=== PATIENT | female | born 1965 | race Caucasian/White ===

== ENCOUNTER 2021-07-07 16:16 | Outpatient (CLI) | payer BC ==
[2021-07-07 16:56] VITALS: BP 121/74
--- NOTE | 2021-07-07 16:56 | SLEEP CARE CONSULTATION ---
Information from patient questionnaire entered by Barbara Larry. I have reviewed and concur with the information entered by Barbara Larry. This document represents the service I personally performed and the decisions made by me, Ruby Benton ARNP. History of Present Illness Service Date and Time: 07/07/2021 1616 Reason for Visit: New patient Chief Complaint: reports: Unrefreshed sleep, Snoring, Observed pauses in breathing, Fatigue Date of Onset: 5-6 years Usual bedtime: 10 PM Time it takes to fall asleep: ~ 10 min Snores at night: Yes Observed to quit breathing while asleep: Yes Number of times waking at night: 3-5 Reasons for waking at night: reports: Snoring, Gasping for air, Bathroom, Other (Unknown reason) Toss, Turn, or Twitch while sleeping: Yes Recalls having dreams: No (Not lately) Usually gets out of bed at: 5-6 AM Feels refreshed in the morning: No Morning headache: No Sleepy or fatigued during the day: Yes Ever fallen asleep while driving: No Takes day naps: No Prior sleep studies: No Additional HPI information: I had the pleasure of seeing KAYLENE CAMPBELL today regarding the possibility of her having a sleep disorder. Her current complaints are fatigue, observed pauses in breathing, snoring and unrefreshed sleep. She states that in February she had a hysterectomy and was told by the nurses that she stopped breathing during surgery. Her sister, who works in sleep medicine, has also told her that she stops breathing during sleep. She has had times she has woken up snoring and other times with her heart pounding/palpitations. She has woken up gasping for air, too. She has stopped sleeping on her back to reduce incidences. She wakes up feeling ok but not energetic. She has brain fog and sometimes has trouble finding words. Her sister has sleep apnea and is using a PAP machine. - Parasomnia Symptoms Ever been unable to move upon waking from sleep: No Walks in sleep: No Talks in sleep: No Ever acted out dreams in sleep: No Ever felt weak in the knees when startled or emotional: No Bothered by creepy, crawly, restless sensations in legs: Yes (Sometimes/rare) Problems with memory or concentration: Yes (Memory is bad! 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 Patient is Single and lives in [place]. Have you smoked in the past 12 months: No Alcohol use: Yes Alcohol amount and frequency: 1-2 drinks every few weeks Caffeine use: Yes Caffeine amount and frequency: 1x/day (coffee/expresso) Family History Family history of sleep disordered breathing: Yes Family Hx Sleep Apnea: Father: Snoring, Sibling: Sleep apnea - Treated Allergies and Home Medications Drug allergies reviewed: Yes (NKDA) Home medication list reviewed: Yes Allergy and home medication list: Levothyroxine Amodipine Lisinopril Review of Systems Weight gain over past 5 years: 10-20 Weight loss over past 5 years: 0 Cardiovascular: reports: high blood pressure Respiratory: reports: wheeze, chronic cough (Tickle in back of throat) Gastrointestinal: reports: other (reflux) Urinary: reports: incontinence, other (Have been working on passing kidney stone the past week. Stone seems to have dissipated or passed. Sleep interrupted due to bathroom breaks. ) Ear/Nose/Throat: reports: dry mouth/throat, wisdom teeth removed. denies: injury to nose, tonsillectomy Endocrine: reports: thyroid disease, sluggishness (tired) Musculoskeletal: reports: joint pain (stiffness), neck pain, back pain, muscle pain or cramping, other (Stiff hands (fingers)) Immunologic: reports: itching. denies: allergies to food or environment Physical Exam Blood Pressure: 121/74 Cuff size: wrist Heart Rate: 90 O2 Saturation: 97 Height: 5 ft 5 in Weight: 255 lb Body Mass Index: 42.4 BMI Classification: Morbidly Obese Neck circumference: 15.5 (inches) Nostrils: patent to airflow Mouth and throat: narrow oropharynx Soft palate: long Hard palate: normal Uvula: normal Uvula visualization: 50% Mallampati Class II Tongue: enlarged in size with teeth thomson on lateral edges Tonsils: 2+ Neck: normal w/o lymphadenopathy or thyromegaly Heart: regular rate and rhythm Lungs: clear bilaterally Impression and Plan 1. Suspected Obstructive Sleep Apnea-Hypopnea Syndrome, as suggested by a history of loud and irregular snoring, observed cessation of breath while asleep, gasping or choking in sleep, unrefreshed sleep, and cognitive impairment. Narrow oropharynx and obesity are common predisposing factors for obstructive sleep apnea-hypopnea syndrome. I recommend proceeding to polysomnography to confirm the diagnosis and to assess severity. If the patient has significant sleep disordered breathing, a manual CPAP titration study will also be performed to find the optimal treatment pressure. I informed the patient of what the sleep studies involve and after some discussion, obtained agreement to proceed. The pathophysiology of obstructive sleep apnea-hypopnea syndrome was discussed with the patient and health risks of cardiovascular and cerebrovascular disease if not treated. AAS brochure for obstructive sleep apnea-hypopnea syndrome given and reviewed. 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 Patient agreed to plan. * Schedule polysomnography +- manual CPAP titration study and return in 1-2 weeks after the study to discuss result and initiate therapy. * Avoid long distance driving or driving when feeling sleepy. * Avoid alcohol, sedative and muscle relaxant around bedtime. * Attempt to lose weight. * Review instructions provided by trained office staff on how to prepare for the sleep study. * Return for follow-up after sleep study completed. Counseling Topics: Weight loss health impact Visit Type: In Office Time Spent with Patient (minutes): 30 Provider Statement: I spent 100% of the Face to Face Visit with the patient with greater than 50% spent counseling the patient and coordination of care.
== END 2021-07-07 16:17 | disposition home or self-care (01) ==
LOC: SC 16:16
PROVIDERS: ATTEND Nurse Practitioner Family
DX: G47.8 Other sleep disorders (principal); R06.81 Apnea, not elsewhere classified; R41.89 Other symptoms and signs involving cognitive functions and awareness; E66.01 Morbid (severe) obesity due to excess calories; Z68.41 Body mass index [BMI] 40.0-44.9, adult
CPT/HCPCS: 99203; 99212

== ENCOUNTER 2021-07-20 12:26 | Outpatient (CLI) | payer BC | END 2021-07-20 12:27 | disposition home or self-care (01) | LOC: SC 12:26 | PROVIDERS: ATTEND Nurse Practitioner Family | DX: G47.33 Obstructive sleep apnea (adult) (pediatric) (principal); R09.02 Hypoxemia | CPT/HCPCS: 95806 ==

== ENCOUNTER 2021-07-29 15:38 | Outpatient (CLI) | payer BC ==
--- NOTE | 2021-07-29 16:05 | SLEEP CARE CONSULTATION ---
Information from patient questionnaire entered by Becca Wagner. I have reviewed and concur with the information entered by Becca Wagner. This document represents the service I personally performed and the decisions made by , Ruby Benton ARNP. History of Present Illness Service Date and Time: 07/29/20211537 Initial [place] Sleepiness Scale score: 11 (in 2020) Current [place] Sleepiness Scale score: 9 Additional HPI information: KAYLENE CAMPBELL returns for follow up and results of the recently performed home sleep study. I explained the pathophysiology behind obstructive sleep apnea. We then spent quite a bit of time discussing different treatment options. For mild obstructive sleep apnea, surgery and oral appliance are alternatives to nasal CPAP therapy but in moderate or severe cases, nasal CPAP is the most effective and reliable treatment. Because apnea is primarily in supine position, then positional management therapy could be effective. Methods discussed such as positioning with pillows, using a T-shirt with tennis balls in the back, and shown commercial products that have a pillow format on back to prevent supine sleep. I reviewed the impact of weight changes on sleep apnea and strongly recommended losing weight. After some discussion, the patient opted to go with the nasal CPAP therapy. Nasal autoCPAP set at 4-15 cmH20 will be ordered with rationale explained. A manual titration study will be ordered if unable to find optimal pressure with office adjustments. I explained how CPAP machine works with sample devices Respironics Dreamstation and ResTwo Tap [id number] and what to expect when using the machine. Using CPAP every night in order to get used to it was emphasized. Patient advised to put CPAP mask on before getting into bed so as not to fall asleep without CPAP. To assist acclimation to CPAP use, it could also be used for a short time during day while reading or watching TV. The patient was instructed to call the CPAP supplier to discuss any mechanical problem that may occur. If the mask given is uncomfortable or is difficult to keep on through the night even with adjustment, contact the CPAP supplier as many will replace with another mask style if notified before 30 days. If snoring or perceives is not getting enough air or too much air from the machine, notify this office. [facility] patient education PAP tips reviewed and given to patient. Patient counseled not drink alcohol less than 4 hours before bedtime as it can increase snoring and apnea. Patient was cautioned about risks of drowsy driving until sleepiness symptoms resolve. Sleep Study - Results Type of Sleep Study: Home sleep study Prior sleep studies: No Polysomnography/Home Sleep Study results: Physician Impression: The quality of the study is good. The length of the study is adequate (> 240 minutes). Please also see the tabulated and graphic data. 1. Obstructive Sleep Apnea-Hypopnea (ICD-10 G47.33), severe, with an AHI of 43.5 /hr and mark SaO2 of 64%. During the study, the patient had 255 apneas (255 obstructive, 0 central, 0 mixed) and 41 hypopneas. The longest episode lasted 89.5 seconds. The respiratory events occurred independently of sleep stage and body position (supine AHI was 44.9 and non-supine, 42.52). 2. Hypoxemia (ICD-10 R09.02), moderate, with the lowest oxygen saturation of 64 % and 73.4 minutes with SaO2 under 90%. Baseline oxygen saturation was normal (Average oxygen saturation was 91%). Allergies and Home Medications Home medication list reviewed: Yes (no changes) Review of Systems Review of systems same as previous: Yes (no changes) Physical Exam Heart Rate: 84 O2 Saturation: 96 Height: 5 ft 5 in Weight: 259 lb Body Mass Index: 43.1 BMI Classification: Morbidly Obese Impression and Plan 1. Obstructive Sleep Apnea-Hypopnea Syndrome, severe, with lowest oxygen saturation of 64%. Obviously this is the cause of the patients symptoms of unrefreshed sleep, and excessive daytime sleepiness. Positive pressure therapy could benefit hypertension, arrhythmia, anxiety and gastric reflux. As mentioned above, the patient will be started on nasal autoCPAP therapy with pressure set at 4-15 cmH2O. A manual titration study will be completed if unable to find optimal treatment pressure with office adjustments. Compliance guidelines also reviewed. A copy of compliance guidelines will be given for reference at check out. 2. Hypoxemia, moderate, with the lowest oxygen saturation of 64 % and 73.4 minutes with SaO2 under 90%. Her baseline oxygen saturation was normal with an average oxygen saturation of 91%. Follow up with PCP as needed. * Nasal auto CPAP therapy, pressure at 4-15 cm H2O. * Attempt to lose weight. * Avoid alcohol consumption near bedtime. * Avoid supine sleep until using CPAP. * The patient is again cautioned about driving until sleepiness completely resolves. * Return one month after CPAP obtained. I will assess response to therapy and compliance at that time. Counseling Topics: Weight loss health impact Visit Type: In Office Time Spent with Patient (minutes): 22 Provider Statement: I spent 100% of the Face to Face Visit with the patient with greater than 50% spent counseling the patient and coordination of care.
== END 2021-07-29 15:39 | disposition home or self-care (01) ==
LOC: SC 15:38
PROVIDERS: ATTEND Nurse Practitioner Family
DX: G47.33 Obstructive sleep apnea (adult) (pediatric) (principal); R09.02 Hypoxemia; E66.01 Morbid (severe) obesity due to excess calories; Z68.41 Body mass index [BMI] 40.0-44.9, adult
CPT/HCPCS: 99212; 99213